=== PATIENT | female | born 1950 | race Caucasian/White ===

== ENCOUNTER 2017-11-15 10:08 | Inpatient (IN) ==
[2017-11-15] MEDS ORDERED: FUROSEMIDE 100 MG/10 ML VIAL IV STA (12:01)
[2017-11-15] MEDS ORDERED: methylPREDNISolone SOD SUC 125 MG/2 ML VIAL IV STA (12:01)
[2017-11-15] MEDS ORDERED: MORPHINE 4 MG/1 ML VIAL IV STA (12:01)
[2017-11-15] MEDS ORDERED: ONDANSETRON 4 MG/2 ML VIAL IV STA (12:01)
[2017-11-15 12:06] LABS: Lactic Acid 2.9 MMOL/L (0.4-2.0)
[2017-11-15 12:09] LABS: Basophils % 0.2 % (0.0-0.8); Eosinophils # 0.1 10*3/uL (0.0-0.87); Eosinophils % 0.5 % (0.00-10.9); Hemoglobin 11.1 GM/DL (12.0-16.0); Immature Granulocytes % 15.7 %; Immature Granulocytes Absolute 4.17 #; Lymphocytes # 0.8 10*3/uL (1.4-4.0); Lymphocytes % 2.9 % (21.3-54.2); Mean Corpuscular HGB Conc 32.6 GM/DL (32-36); Mean Corpuscular Hemoglobin 34 PG (27-34); Mean Corpuscular Volume 104.9 FL (87-102); Mean Platelet Volume 10.9 FL (9.6-12.0); Monocytes # 0.9 10*3/uL (0.11-0.8); Monocytes % 3.5 % (1.7-12.7); NRBC # 0.08 10*3/uL; Neutrophils # 20.5 10*3/uL (1.4-7.4); Neutrophils % 77.2 % (38.7-73.9); Platelet Count 90 T/CUMM (130-400); Red Blood Count 3.24 MC/CUMM (3.8-5.5); Red Cell Distribution Width 21.2 % (9.3-17.3); White Blood Count 26.6 T/CUMM (4-12)
[2017-11-15 12:12] LABS: Apearance,Urine CLEAR (Clear); Bilirubin,Urine Negative (Negative); Blood, Urine Small mg/dL (Negative); Glucose,Urine (UA) Negative (Negative); Ketones,Urine Negative (Negative); Nitrite,Urine Negative (Negative); Protein,Urine Negative; RBC,Urine <1 /HPF (0-4); Squamous Epithelial Cell,Urine Occasional /HPF (0-10); Urine Color Yellow (Yellow); Urine Specific Gravity 1.018 (1.001-1.035); WBC,Urine 1 /HPF (0-6)
[2017-11-15 12:25] LABS: INR 1.1; PT Patient Result 11.7 SECS
[2017-11-15 12:26] LABS: Albumin 2.2 G/DL (3.4-5.0); Bilirubin,Total 1.3 MG/DL (0.2-1.0); Calcium 7.9 MG/DL (8.5-10.1); Osmolality,Calculated 292.3 MOS/KG (273-304); Potassium 3.6 MMOL/L (3.5-5.1); Total Protein 5.6 G/DL (6.4-8.3)
[2017-11-15 12:29] LABS: Troponin I Only 0.597 NG/ML (0.00-0.045)
[2017-11-15] MEDS ORDERED: ALBUTEROL NEB SOLN 5 MG/ML 20 ML/BOTTLE RESP TX SCH (12:30)
[2017-11-15 12:38] LABS: Band Neutrophils 4 % (0-10); Hypochromasia 1+; Lymphocytes 5 % (20-55); Microcytosis Slight; Platelet Estimate Decreased; Segmented Neutrophils 89 % (50-85); Total Cells Counted 100
[2017-11-15 12:41] LABS: Allen Test Positive; Pt O2 Delivery Device Ventilator
[2017-11-15 12:42] LABS: ABG Base Excess 2.5 MMOL/L (-2.5-2.5); ABG HCO3 26.6 MMOL/L (20-26); ABG Oxygen Saturation 96.6 % (95-100); ABG PCO2 38.3 MM HG (35-48); ABG PH 7.449 (7.35-7.45); ABG PO2 85.1 MM HG (80-95); ABG TCO2 24.2 MMOL/L (23-27)
[2017-11-15] MEDS: LEVOFLOXACIN INJ 750 MG in PREMIX 1 EACH IV SCH (14:00)
[2017-11-15 14:34] LABS: INR 1.1; PT Patient Result 11.7 SECS
[2017-11-15] MEDS ORDERED: diphenhydrAMINE 50 MG/1 ML VIAL ONE (14:53)
[2017-11-15] MEDS ORDERED: FAMOTIDINE 20 MG/2 ML VIAL IV ONE (14:54)
[2017-11-15 17:30] LABS: Troponin I Only 0.876 NG/ML (0.00-0.045)
[2017-11-15] MEDS: BACLOFEN 10 MG TABLET PO SCH (20:44)
[2017-11-15] MEDS: CARVEDILOL 6.25 MG TABLET PO SCH (20:44)
[2017-11-15] MEDS: ENOXAPARIN 80 MG/0.8 ML SYRINGE SUBCUT SCH (20:45)
[2017-11-16 05:00] LABS: Hematocrit 24.8 VOL% (35.7-47.0); Hemoglobin 8.1 GM/DL (12.0-16.0); Immature Granulocytes % 11.1 %; Immature Granulocytes Absolute 5.37 #; Lymphocytes # 0.8 10*3/uL (1.4-4.0); Lymphocytes % 1.6 % (21.3-54.2); Mean Corpuscular HGB Conc 32.7 GM/DL (32-36); Mean Corpuscular Hemoglobin 35 PG (27-34); Mean Corpuscular Volume 105.5 FL (87-102); Mean Platelet Volume 9.3 FL (9.6-12.0); Monocytes # 0.8 10*3/uL (0.11-0.8); Monocytes % 1.7 % (1.7-12.7); NRBC # 0.18 10*3/uL; Neutrophils # 41.4 10*3/uL (1.4-7.4); Neutrophils % 85.6 % (38.7-73.9); Platelet Count 87 T/CUMM (130-400); Red Blood Count 2.35 MC/CUMM (3.8-5.5)
[2017-11-16 05:05] LABS: White Blood Count 48.4 T/CUMM (4-12)
[2017-11-16 05:08] LABS: INR 1.2; PT Patient Result 12.2 SECS
[2017-11-16 05:09] LABS: INR 1.2; PT Patient Result 12.1 SECS; Partial Thromboplastin Time 36.4 SECS (0-40)
[2017-11-16 05:25] LABS: Band Neutrophils 6 % (0-10); Lymphocytes 2 % (20-55); Metamyelocytes 1 %; Segmented Neutrophils 89 % (50-85); Total Cells Counted 100
[2017-11-16 05:26] LABS: Anisocytosis 1+; Hypochromasia 1+; Macrocytosis 1+
[2017-11-16 05:27] LABS: Platelet Estimate Decreased
[2017-11-16 05:32] LABS: Lactic Acid 2.5 MMOL/L (0.4-2.0)
[2017-11-16 05:33] LABS: Albumin 2.1 G/DL (3.4-5.0); Bilirubin,Total 1.2 MG/DL (0.2-1.0); Calcium 7.5 MG/DL (8.5-10.1); Osmolality,Calculated 294.1 MOS/KG (273-304); Potassium 3.9 MMOL/L (3.5-5.1); Total Protein 5.1 G/DL (6.4-8.3)
[2017-11-16] MEDS ORDERED: FUROSEMIDE 40 MG/4 ML VIAL IV SCH ×2 (08:00)
[2017-11-16] MEDS ORDERED: SODIUM CHLORIDE 0.9% 1,000 ML IV PRN (08:16)
[2017-11-16 08:53] LABS: Lactic Acid 3.9 MMOL/L (0.4-2.0)
[2017-11-16] MEDS ORDERED: LEVOFLOXACIN INJ 750 MG in PREMIX 1 EACH IV SCH (09:00)
[2017-11-16] MEDS: FUROSEMIDE 40 MG/4 ML VIAL IV SCH ×2 (09:32→16:30)
[2017-11-16] MEDS: MEROPENEM 1,000 MG in SYRINGE 1 EACH IV SCH ×2 (09:32→16:31)
[2017-11-16] MEDS: ENOXAPARIN 80 MG/0.8 ML SYRINGE SUBCUT SCH ×2 (09:33→20:53)
[2017-11-16] MEDS: PANTOPRAZOLE 40 MG TABLET PO SCH (09:33)
[2017-11-16] MEDS: CARVEDILOL 6.25 MG TABLET PO SCH ×2 (09:43→20:52)
[2017-11-16 17:30] LABS: Lactic Acid 3.1 MMOL/L (0.4-2.0)
[2017-11-16] MEDS: BACLOFEN 10 MG TABLET PO SCH (20:52)
[2017-11-16 22:12] LABS: Lactic Acid 2.1 MMOL/L (0.4-2.0)
[2017-11-17 02:22] LABS: Hematocrit 33.7 VOL% (35.7-47.0); Hemoglobin 11.5 GM/DL (12.0-16.0); Immature Granulocytes % 7.5 %; Immature Granulocytes Absolute 5.94 #; Lymphocytes # 0.8 10*3/uL (1.4-4.0); Mean Corpuscular HGB Conc 34.1 GM/DL (32-36); Mean Corpuscular Hemoglobin 34 PG (27-34); Mean Corpuscular Volume 98.3 FL (87-102); Mean Platelet Volume 10.6 FL (9.6-12.0); Monocytes # 1.8 10*3/uL (0.11-0.8); Monocytes % 2.2 % (1.7-12.7); NRBC # 0.34 10*3/uL; Neutrophils # 70.4 10*3/uL (1.4-7.4); Neutrophils % 89.3 % (38.7-73.9); Platelet Count 62 T/CUMM (130-400); Red Blood Count 3.43 MC/CUMM (3.8-5.5); Red Cell Distribution Width 20.6 % (9.3-17.3)
[2017-11-17 02:27] LABS: INR 1.2; PT Patient Result 12.5 SECS
[2017-11-17 02:33] LABS: White Blood Count 78.9 T/CUMM (4-12)
[2017-11-17 02:43] LABS: Albumin 2.2 G/DL (3.4-5.0); Bilirubin,Total 1.1 MG/DL (0.2-1.0); Calcium 7.1 MG/DL (8.5-10.1); Osmolality,Calculated 298.1 MOS/KG (273-304); Potassium 4.1 MMOL/L (3.5-5.1); Total Protein 5.1 G/DL (6.4-8.3)
[2017-11-17 03:28] LABS: Lymphocytes 2 % (20-55); Segmented Neutrophils 94 % (50-85)
[2017-11-17 03:30] LABS: Anisocytosis 1+; Macrocytosis 1+; Platelet Estimate Decreased
[2017-11-17 03:31] LABS: Hypochromasia Slight
[2017-11-17 03:32] LABS: Ovalocytes 1+; Total Cells Counted 100
[2017-11-17] MEDS: MEROPENEM 1,000 MG in SYRINGE 1 EACH IV SCH (03:34)
[2017-11-17] MEDS ORDERED: FUROSEMIDE 20 MG/2 ML VIAL ONE (06:44)
[2017-11-17 06:52] LABS: ABG Base Excess -1.9 MMOL/L (-2.5-2.5); ABG HCO3 26.2 MMOL/L (20-26); ABG Oxygen Saturation 92.1 % (95-100); ABG PCO2 59.5 MM HG (35-48); ABG PH 7.262 (7.35-7.45); ABG PO2 78.6 MM HG (80-95)
[2017-11-17] MEDS ORDERED: FUROSEMIDE 20 MG/2 ML VIAL IV ONE (07:00)
[2017-11-17] MEDS ORDERED: FUROSEMIDE 40 MG/4 ML VIAL IV ONE (07:00)
[2017-11-17] MEDS ORDERED: SODIUM CHLORIDE 0.45% 1,000 ML IV SCH (07:30)
[2017-11-17] MEDS ORDERED: DIAZEPAM 5 MG TABLET PO ONE (07:30)
[2017-11-17] MEDS: FUROSEMIDE 40 MG/4 ML VIAL IV SCH (08:10)
[2017-11-17] MEDS ORDERED: MORPHINE 4 MG/1 ML VIAL IV PRN ×2 (08:20→10:00)
[2017-11-17 08:21] LABS: Calcium 7.4 MG/DL (8.5-10.1); Osmolality,Calculated 296.3 MOS/KG (273-304); Potassium 4.4 MMOL/L (3.5-5.1)
[2017-11-17] MEDS: CARVEDILOL 6.25 MG TABLET PO SCH (08:54)
[2017-11-17] MEDS: ENOXAPARIN 80 MG/0.8 ML SYRINGE SUBCUT SCH (08:54)
[2017-11-17] MEDS: LEVOFLOXACIN INJ 750 MG in PREMIX 1 EACH IV SCH (08:56)
[2017-11-17] MEDS: PANTOPRAZOLE 40 MG TABLET PO SCH (09:00)
[2017-11-17 11:59] VITALS: BP 102/60
[2017-12-11] MEDS ORDERED: PEGFILGRASTIM 6 MG/0.6 ML SYRINGE SUBCUT SCH (09:00)
== END 2017-11-17 13:57 | disposition expired | DRG 291 ==
LOC: EDUNIT# → EDBD → N.ED 10:08 → N.EDINP 14:58 → N.2E 16:15
PROVIDERS: ADMIT Internal Medicine; ATTEND Internal Medicine